=== PATIENT | male | born 1965 | race African-American/Black ===

== ENCOUNTER 2019-01-13 08:20 | Emergency (ER) | payer OTHER ==
[2019-01-13] MEDS ORDERED: Acetaminophen 500 MG TAB ONE (09:02)
[2019-01-13] MEDS ORDERED: cefTRIAXone\\ROCEPHIN 1 GM VIAL ONE (09:02)
[2019-01-13] MEDS ORDERED: Adacel (T-DAP) 0.5 ML SYRINGE ONE (09:02)
[2019-01-13] MEDS ORDERED: Sulfameth/Trimethoprim DS 800-160mg TAB ONE (09:02)
[2019-01-13] MEDS ORDERED: Lidocaine 1% (PF) 30 ML VIAL ONE (09:03)
== END 2019-01-13 09:37 | disposition home or self-care (01) ==
LOC: NAV ERS 08:20
DX: L02.31 Cutaneous abscess of buttock (principal); L03.317 Cellulitis of buttock
CPT/HCPCS: 90471; 90715; 96372; J0696; J2001